=== PATIENT | female | born 1945 | race Caucasian/White ===

== ENCOUNTER 2021-12-12 01:04 | Inpatient (IN) ==
[2021-12-12 01:56] LABS: ABS Basophils 0.1 10^3/ul (0-0.2); ABS Eosinophils 0.1 10^3/ul (0-0.6); ABS Lymphocytes 1.6 10^3/ul (1.0-4.8); ABS Monocytes 0.8 10^3/ul (0-0.8); ABS Neutrophils 5.5 10^3/ul (1.5-7.7); Eosinophil % 1.6 %; Hematocrit 33 % (35-47); Hemoglobin 10.8 g/dL (12.0-16.0); Lymphocyte % 19.9 %; Mean Corpuscular HGB Conc 32 g/dL (31-36); Mean Corpuscular Hemoglobin 26 pg (27-31); Mean Corpuscular Volume 82 fL (80-97); Mean Platelet Volume 9.7 fL (7.4-10.4); Platelet Count 293 10^3/uL (150-450); Red Blood Count 4.08 10^6 /uL (3.70-4.87); Red Cell Distribution Width 16 % (10-15); White Blood Count 8.1 10^3/uL (3.5-10.8)
[2021-12-12 02:17] LABS: Activated Partial Thrombo Time 28.4 seconds (26.0-38.0); INR 0.96 (0.86-1.15)
[2021-12-12 02:38] LABS: Albumin/Globulin Ratio 1.4 (1-3); Calcium 8.9 mg/dL (8.6-10.3); Globulin 2.8 g/dL (2-4); HDL Cholesterol 85.4 mg/dL; Potassium 4.4 mmol/L (3.5-5.0); Total Bilirubin 0.3 mg/dL (0.2-1.0); Total Protein 6.8 g/dL (6.4-8.9)
[2021-12-12] MEDS ORDERED: Famotidine IV 10 MG/ML 2 ml VIAL (20 mg) ONE (03:23)
[2021-12-12 04:04] LABS: High Sensitivity Troponin 1 Hr 18 pg/mL (<15)
[2021-12-12 04:43] LABS: Urine Appearance Cloudy; Urine Bilirubin Negative (Negative); Urine Blood 1+ (Negative); Urine Color Yellow; Urine Glucose Negative (Negative); Urine Ketones Negative (Negative); Urine Nitrite Negative (Negative); Urine Protein Negative (Negative); Urine Specific Gravity 1.014 (1.002-1.030); Urine Urobilinogen Negative (Negative)
[2021-12-12 04:45] LABS: Urine Bacteria 1+ (Absent); Urine Red Blood Cell 1+(3-5/hpf) (Absent); Urine Squamous Epithelial Cell Present (Absent); Urine White Blood Cell Trace(0-5/hpf) (Absent)
[2021-12-12 04:53] LABS: TSH Ultra Thyroid Stim Horm 1.27 mcIU/mL (0.34-5.60)
[2021-12-12] MEDS ORDERED: NS 0.9% 500 ml BAG 500 ML IV ONE (05:11)
[2021-12-12] MEDS: Heparin 5000 UNITS/ML 1 mL VIAL SUBCUT SCH ×3 (06:02→22:47)
[2021-12-12 06:54] LABS: ABS Basophils 0.1 10^3/ul (0-0.2); ABS Eosinophils 0.1 10^3/ul (0-0.6); ABS Lymphocytes 1.2 10^3/ul (1.0-4.8); ABS Monocytes 0.6 10^3/ul (0-0.8); ABS Neutrophils 6.7 10^3/ul (1.5-7.7); Eosinophil % 0.7 %; Hematocrit 29 % (35-47); Hemoglobin 9.4 g/dL (12.0-16.0); Lymphocyte % 14.1 %; Mean Corpuscular HGB Conc 32 g/dL (31-36); Mean Corpuscular Hemoglobin 26 pg (27-31); Mean Corpuscular Volume 82 fL (80-97); Mean Platelet Volume 9.7 fL (7.4-10.4); Platelet Count 247 10^3/uL (150-450); Red Cell Distribution Width 15 % (10-15); White Blood Count 8.8 10^3/uL (3.5-10.8)
[2021-12-12 07:33] LABS: Calcium 8.4 mg/dL (8.6-10.3); Potassium 4.5 mmol/L (3.5-5.0); eGFR CKD-EPI 31.5 (>60)
[2021-12-12] MEDS ORDERED: Acetaminophen IV 1 GM/100ML 100 ML IV ONE (17:09)
[2021-12-13] MEDS: Heparin 5000 UNITS/ML 1 mL VIAL SUBCUT SCH ×3 (05:31→20:57)
[2021-12-14] MEDS: Heparin 5000 UNITS/ML 1 mL VIAL SUBCUT SCH (06:02)
[2021-12-14] MEDS: Cholecalciferol (VIT D3) 1,000 unit TAB PO SCH ×2 (09:23→10:08)
[2021-12-14 13:54] VITALS: BP 117/43
== END 2021-12-14 15:26 | disposition home or self-care (01) | DRG 69 ==
LOC: ED 01:04 → SUATTDRO 03:42 → EDHOLD 03:42 → MEDTELE 07:54
PROVIDERS: ADMIT Hospitalist; ATTEND Internal Medicine

== ENCOUNTER 2022-06-16 19:19 | Inpatient (IN) ==
[2022-06-16 20:01] LABS: Urine Appearance Clear; Urine Bilirubin Negative (Negative); Urine Blood Negative (Negative); Urine Color Straw; Urine Glucose Negative (Negative); Urine Ketones Negative (Negative); Urine Nitrite Negative (Negative); Urine Protein Negative (Negative); Urine Urobilinogen Negative (Negative)
[2022-06-16 20:06] LABS: Hematocrit 15 % (35-47); Mean Corpuscular HGB Conc 27 g/dL (31-36); Mean Corpuscular Hemoglobin 19 pg (27-31); Mean Corpuscular Volume 72 fL (80-97); Platelet Count 264 10^3/uL (150-450); Red Blood Count 2.08 10^6 /uL (3.70-4.87); Red Cell Distribution Width 19 % (10-15); White Blood Count 6.4 10^3/uL (3.5-10.8)
[2022-06-16 20:19] LABS: Hematocrit 15 % (35-47); Mean Corpuscular HGB Conc 27 g/dL (31-36); Mean Corpuscular Hemoglobin 20 pg (27-31); Mean Corpuscular Volume 72 fL (80-97); Red Blood Count 2.05 10^6 /uL (3.70-4.87); Red Cell Distribution Width 19 % (10-15); White Blood Count 5.8 10^3/uL (3.5-10.8)
[2022-06-16] MEDS ORDERED: Furosemide 40 mg/4 ml IV VIAL IV SLOW PU ONE (20:23)
[2022-06-16 20:35] LABS: Microcytosis 2+; Target Cells 1+; Tear Drop Cells 1+
[2022-06-16 20:36] LABS: Platelet Morphology Clumped; Polychromasia 1+
[2022-06-16 20:38] LABS: Stomatocytes 2+
[2022-06-16 20:39] LABS: Hypochromasia 2+
[2022-06-16 20:40] LABS: ABS Basophils 0.2 10^3/ul (0-0.2); ABS Eosinophils 0.1 10^3/ul (0-0.6); ABS Monocytes 0.6 10^3/ul (0-0.8); ABS Neutrophils 4.6 10^3/ul (1.5-7.7); ABS Nucleated RBC 0.2 10^3/ul; Eosinophil % 0.8 %; Lymphocyte % 15.5 %; Nucleated Red Blood Cells % 2.4
[2022-06-16 20:42] LABS: ABS Basophils 0.1 10^3/ul (0-0.2); ABS Lymphocytes 0.9 10^3/ul (1.0-4.8); ABS Monocytes 0.6 10^3/ul (0-0.8); ABS Neutrophils 4.6 10^3/ul (1.5-7.7); ABS Nucleated RBC 0.1 10^3/ul; Eosinophil % 0.6 %; Lymphocyte % 14.4 %; Mean Platelet Volume 7.9 fL (7.4-10.4); Nucleated Red Blood Cells % 2.2; Platelet Count 262 10^3/uL (150-450)
[2022-06-16 20:51] LABS: ALT 13 U/L (7-52); AST 13 U/L (13-39); Albumin 3.8 g/dL (3.2-5.2); Albumin/Globulin Ratio 1.8 (1-3); Alkaline Phosphatase 64 U/L (35-149); Anion Gap 9 mmol/L (2-11); Blood Urea Nitrogen 33 mg/dL (6-24); CO2 Carbon Dioxide 25 mmol/L (22-32); Calcium 8.7 mg/dL (8.6-10.3); Chloride 106 mmol/L (101-111); Globulin 2.1 g/dL (2-4); Glucose 114 mg/dL (70-100); Potassium 4.7 mmol/L (3.5-5.0); Sodium 140 mmol/L (135-145); Total Protein 5.9 g/dL (6.4-8.9); eGFR CKD-EPI 47.7 (>60)
[2022-06-16 22:50] LABS: Corrected Retic Count 1.2 % (0.5-1.5); Hematocrit for Retic CNT 15 % (35-47); Immature Retic Fraction 0.58; RBC Retic Count 2.04 10^6/uL (3.70-4.87)
[2022-06-16 22:52] LABS: LDH 168 U/L (140-271); Total Iron Binding Capacity 547 mcg/dL (250-450); Transferrin 391 mg/dL (203-362)
[2022-06-16 22:53] LABS: % Iron Saturation 4 % (15-55); Iron < 20 ug/dL (50-212); Unsaturated Iron Binding 527 ug/dL
[2022-06-16] MEDS: Pantoprazole VIAL 40 MG VIAL IV SCH (23:06)
[2022-06-16 23:17] LABS: TSH Ultra Thyroid Stim Horm 0.72 mcIU/mL (0.34-5.60)
[2022-06-16 23:18] LABS: Folate 19.29 ng/mL (5.90-24.80)
[2022-06-16 23:19] LABS: Vitamin B12 293 pg/mL (180-914)
[2022-06-17] MEDS ORDERED: Morphine 2 MG/ML SYRINGE IV PRN ×2 (00:37→00:44)
[2022-06-17] MEDS ORDERED: Morphine 4 MG/ML VIAL (1 ml) ONE (00:41)
[2022-06-17] MEDS: HYDROmorphone 0.5 MG/0.5 ML SYRINGE IV SCH ×5 (05:34→21:12)
[2022-06-17] MEDS: Pantoprazole VIAL 40 MG VIAL IV SCH (08:07)
[2022-06-17] MEDS: Cholecalciferol (VIT D3) 1,000 unit TAB PO SCH (08:07)
[2022-06-17 08:34] LABS: ABS Basophils 0.1 10^3/ul (0-0.2); ABS Eosinophils 0.2 10^3/ul (0-0.6); ABS Lymphocytes 1.2 10^3/ul (1.0-4.8); ABS Monocytes 0.7 10^3/ul (0-0.8); ABS Neutrophils 4.5 10^3/ul (1.5-7.7); ABS Nucleated RBC 0.1 10^3/ul; Eosinophil % 2.3 %; Hematocrit 21 % (35-47); Hemoglobin 6.4 g/dL (12.0-16.0); Lymphocyte % 18.1 %; Mean Corpuscular HGB Conc 30 g/dL (31-36); Mean Corpuscular Hemoglobin 24 pg (27-31); Mean Corpuscular Volume 78 fL (80-97); Nucleated Red Blood Cells % 1.1; Platelet Count 212 10^3/uL (150-450); Red Blood Count 2.73 10^6 /uL (3.70-4.87); Red Cell Distribution Width 22 % (10-15); White Blood Count 6.7 10^3/uL (3.5-10.8)
[2022-06-17 08:57] LABS: Calcium 8.5 mg/dL (8.6-10.3); Potassium 4.2 mmol/L (3.5-5.0); eGFR CKD-EPI 48.7 (>60)
[2022-06-17] MEDS ORDERED: Valsartan/HCTZ 80/12.5(NF) TAB PO SCH (09:00)
[2022-06-17 13:15] LABS: Ferritin 5.2 ng/mL (11-307)
[2022-06-17] MEDS: Iron Sucrose 200 MG in NS 0.9% 100 ml BAG 100 ML IVPB SCH (13:45)
[2022-06-17 14:15] LABS: Hematocrit 23 % (35-47); Hemoglobin 7.2 g/dL (12.0-16.0); Mean Corpuscular HGB Conc 31 g/dL (31-36); Mean Corpuscular Hemoglobin 25 pg (27-31); Mean Corpuscular Volume 80 fL (80-97); Platelet Count 201 10^3/uL (150-450); Red Blood Count 2.85 10^6 /uL (3.70-4.87); Red Cell Distribution Width 23 % (10-15); White Blood Count 6.6 10^3/uL (3.5-10.8)
[2022-06-18] MEDS: HYDROmorphone 0.5 MG/0.5 ML SYRINGE IV SCH ×5 (01:34→19:20)
[2022-06-18 06:57] LABS: ABS Basophils 0.1 10^3/ul (0-0.2); ABS Eosinophils 0.2 10^3/ul (0-0.6); ABS Monocytes 0.7 10^3/ul (0-0.8); ABS Neutrophils 4.4 10^3/ul (1.5-7.7); ABS Nucleated RBC 0.1 10^3/ul; Eosinophil % 3.6 %; Hematocrit 24 % (35-47); Hemoglobin 7.4 g/dL (12.0-16.0); Lymphocyte % 14.9 %; Mean Corpuscular HGB Conc 31 g/dL (31-36); Mean Corpuscular Hemoglobin 24 pg (27-31); Mean Corpuscular Volume 79 fL (80-97); Mean Platelet Volume 8.2 fL (7.4-10.4); Nucleated Red Blood Cells % 1.4; Platelet Count 193 10^3/uL (150-450); Red Blood Count 3.02 10^6 /uL (3.70-4.87); Red Cell Distribution Width 23 % (10-15); White Blood Count 6.4 10^3/uL (3.5-10.8)
[2022-06-18 07:10] LABS: Calcium 8.3 mg/dL (8.6-10.3)
[2022-06-18] MEDS: Cholecalciferol (VIT D3) 1,000 unit TAB PO SCH (09:10)
[2022-06-18] MEDS: Pantoprazole VIAL 40 MG VIAL IV SCH (09:11)
[2022-06-18] MEDS ORDERED: Midazolam 5 mg/5 ml VIAL 1 mg/ml 5 ml VIAL (5 mg) ONE (12:20)
[2022-06-18] MEDS ORDERED: fentaNYL 100 mcg/2 ml 50 MCG/ML VIAL ONE (12:20)
[2022-06-19 06:14] LABS: ABS Basophils 0.1 10^3/ul (0-0.2); ABS Eosinophils 0.3 10^3/ul (0-0.6); ABS Lymphocytes 1.3 10^3/ul (1.0-4.8); ABS Monocytes 0.9 10^3/ul (0-0.8); ABS Neutrophils 5.2 10^3/ul (1.5-7.7); Eosinophil % 3.6 %; Hematocrit 24 % (35-47); Hemoglobin 7.3 g/dL (12.0-16.0); Lymphocyte % 16.6 %; Mean Corpuscular HGB Conc 31 g/dL (31-36); Mean Corpuscular Hemoglobin 25 pg (27-31); Mean Corpuscular Volume 81 fL (80-97); Mean Platelet Volume 8.4 fL (7.4-10.4); Nucleated Red Blood Cells % 0.3; Platelet Count 185 10^3/uL (150-450); Red Blood Count 2.92 10^6 /uL (3.70-4.87); Red Cell Distribution Width 24 % (10-15); White Blood Count 7.7 10^3/uL (3.5-10.8)
[2022-06-19 06:35] LABS: Calcium 8.4 mg/dL (8.6-10.3); Potassium 3.9 mmol/L (3.5-5.0); eGFR CKD-EPI 52.4 (>60)
[2022-06-19 08:45] LABS: INR 1.11 (0.88-1.18)
[2022-06-19] MEDS: Cholecalciferol (VIT D3) 1,000 unit TAB PO SCH (10:08)
[2022-06-19] MEDS: Iron Sucrose 200 MG in NS 0.9% 100 ml BAG 100 ML IVPB SCH (12:47)
[2022-06-19] MEDS ORDERED: PEG 3000 GI LAVAGE 1 GALLON PO ONE (13:00)
[2022-06-19] MEDS ORDERED: Acetaminophen IV 1 GM/100ML 1,000 MG/100 ML BAG IV PRN (15:41)
[2022-06-19] MEDS: Acetaminophen IV 1 GM/100ML 1,000 MG/100 ML BAG IV PRN (22:04)
[2022-06-20 05:51] LABS: ABS Basophils 0.1 10^3/ul (0-0.2); ABS Eosinophils 0.2 10^3/ul (0-0.6); ABS Lymphocytes 1.2 10^3/ul (1.0-4.8); ABS Monocytes 0.8 10^3/ul (0-0.8); ABS Neutrophils 3.9 10^3/ul (1.5-7.7); Hematocrit 26 % (35-47); Lymphocyte % 18.8 %; Mean Corpuscular HGB Conc 31 g/dL (31-36); Mean Corpuscular Hemoglobin 26 pg (27-31); Mean Corpuscular Volume 83 fL (80-97); Mean Platelet Volume 8.1 fL (7.4-10.4); Nucleated Red Blood Cells % 0.4; Platelet Count 200 10^3/uL (150-450); Red Cell Distribution Width 24 % (10-15); White Blood Count 6.2 10^3/uL (3.5-10.8)
[2022-06-20 06:23] LABS: Calcium 8.5 mg/dL (8.6-10.3); Potassium 3.8 mmol/L (3.5-5.0)
[2022-06-20 06:29] LABS: eGFR CKD-EPI 59.5 (>60)
[2022-06-20] MEDS: Acetaminophen IV 1 GM/100ML 1,000 MG/100 ML BAG IV PRN ×2 (08:09→20:30)
[2022-06-20] MEDS: Cholecalciferol (VIT D3) 1,000 unit TAB PO SCH (08:09)
[2022-06-20] MEDS ORDERED: Midazolam 5 mg/5 ml VIAL 1 mg/ml 5 ml VIAL (5 mg) ONE (15:00)
[2022-06-20] MEDS ORDERED: fentaNYL 100 mcg/2 ml 50 MCG/ML VIAL ONE (15:00)
[2022-06-21 00:09] LABS: Albumin 2.9 g/dL (3.4-4.7); Gamma Globulin 0.6 g/dL (0.6-1.6); Total Protein(PEP) 5.7 g/dL (6.3 - 7.9)
[2022-06-21] MEDS ORDERED: Benzocaine/Menthol LOZ PO PRN (01:53)
[2022-06-21 05:33] LABS: Hematocrit 25 % (35-47); Hemoglobin 7.6 g/dL (12.0-16.0); Mean Corpuscular HGB Conc 31 g/dL (31-36); Mean Corpuscular Hemoglobin 25 pg (27-31); Mean Corpuscular Volume 83 fL (80-97); Mean Platelet Volume 8.2 fL (7.4-10.4); Platelet Count 193 10^3/uL (150-450); Red Blood Count 2.98 10^6 /uL (3.70-4.87); Red Cell Distribution Width 25 % (10-15); White Blood Count 6.1 10^3/uL (3.5-10.8)
[2022-06-21 06:10] LABS: ABS Basophils 0.1 10^3/ul (0-0.2); ABS Eosinophils 0.3 10^3/ul (0-0.6); ABS Lymphocytes 1.2 10^3/ul (1.0-4.8); ABS Monocytes 0.7 10^3/ul (0-0.8); ABS Neutrophils 3.8 10^3/ul (1.5-7.7); Nucleated Red Blood Cells % 0.2
[2022-06-21 06:17] LABS: Calcium 8.3 mg/dL (8.6-10.3); Potassium 3.8 mmol/L (3.5-5.0)
[2022-06-21 06:23] LABS: eGFR CKD-EPI 60.9 (>60)
[2022-06-21] MEDS: Cholecalciferol (VIT D3) 1,000 unit TAB PO SCH (08:16)
[2022-06-21] MEDS: Iron Sucrose 200 MG in NS 0.9% 100 ml BAG 100 ML IVPB SCH (12:17)
[2022-06-21 12:27] VITALS: BP 149/55
== END 2022-06-21 15:15 | disposition home or self-care (01) | DRG 812 ==
LOC: ED 19:19 → SUATTDRO 22:02 → EDHOLD 22:02 → MEDTELE 06-17 02:14
PROVIDERS: ADMIT Student in an Organized Health Care Education/Training Program; ATTEND Internal Medicine

== ENCOUNTER 2024-01-15 21:33 | Inpatient (IN) ==
[2024-01-15 22:02] LABS: ABS Basophils 0.1 10^3/uL (0.0-0.1); ABS Eosinophils 0.1 10^3/uL (0.0-0.5); ABS Lymphocytes 1.1 10^3/uL (1.0-4.8); ABS Monocytes 0.7 10^3/uL (0.0-0.9); ABS Neutrophils 5.1 10^3/uL (1.5-7.6); Eosinophil % 1.1 %; Hematocrit 26.7 % (35-45); Hemoglobin 8.5 g/dL (11.5-14.3); Lymphocyte % 15.6 %; Mean Corpuscular Hemoglobin 27.3 pg (27-33); Mean Corpuscular Hgb Conc 31.8 g/dL (31-36); Mean Corpuscular Volume 85.9 fL (80-97); Mean Platelet Volume 9.1 fL (7.5-11.2); Nucleated Red Blood Cells % 0.1 %/100WBC (0.0-0.8); Platelet Count 260 10^3/uL (150-450); Red Cell Distribution Width 16.2 % (12-17); White Blood Count 7.1 10^3/uL (3.8-11.8)
[2024-01-15 22:09] LABS: INR 1.05 (0.83-1.13)
[2024-01-15 23:00] LABS: Albumin 4.3 g/dL (3.2-5.2); Albumin/Globulin Ratio 1.7 (1-3); Calcium 9.5 mg/dL (8.6-10.3); Creatinine, Serum 1.27 mg/dL (0.51-0.95); Globulin 2.5 g/dL (2-4); Magnesium 2.1 mg/dL (1.9-2.7); Potassium 4.6 mmol/L (3.5-5.0); Total Bilirubin 0.4 mg/dL (0.2-1.0); Total Protein 6.8 g/dL (6.4-8.9); eGFR CKD-EPI 43.6 (>60)
[2024-01-15 23:24] LABS: High Sensitivity Troponin 1 Hr 9 pg/mL (<15)
[2024-01-16] MEDS: Morphine 2 MG/ML SYRINGE IV ONE (00:40)
[2024-01-16] MEDS: Morphine 2 MG/ML SYRINGE IV PRN (05:36)
[2024-01-16 06:31] LABS: ABS Basophils 0.2 10^3/uL (0.0-0.1); ABS Eosinophils 0.1 10^3/uL (0.0-0.5); ABS Lymphocytes 1.4 10^3/uL (1.0-4.8); ABS Monocytes 0.8 10^3/uL (0.0-0.9); ABS Neutrophils 3.9 10^3/uL (1.5-7.6); ABS Nucleated RBC 0.01 10^3/ul; Hematocrit 22.9 % (35-45); Hemoglobin 7.5 g/dL (11.5-14.3); Lymphocyte % 21.6 %; Mean Corpuscular Hemoglobin 28.1 pg (27-33); Mean Corpuscular Hgb Conc 32.7 g/dL (31-36); Mean Platelet Volume 9.2 fL (7.5-11.2); Nucleated Red Blood Cells % 0.1 %/100WBC (0.0-0.8); Platelet Count 228 10^3/uL (150-450); Red Blood Count 2.67 10^6/uL (3.63-4.92); Red Cell Distribution Width 15.7 % (12-17); White Blood Count 6.3 10^3/uL (3.8-11.8)
[2024-01-16 06:51] LABS: Anion Gap 8 mmol/L (2-16); Blood Urea Nitrogen 34 mg/dL (6-24); CO2 Carbon Dioxide 22 mmol/L (22-32); Calcium 7.7 mg/dL (8.6-10.3); Chloride 108 mmol/L (101-111); Creatinine, Serum 1.01 mg/dL (0.51-0.95); Glucose 98 mg/dL (70-100); Magnesium 1.8 mg/dL (1.9-2.7); Potassium 3.8 mmol/L (3.5-5.0); Sodium 138 mmol/L (135-145); eGFR CKD-EPI 57.3 (>60)
[2024-01-16] MEDS ORDERED: fentaNYL 100 mcg/2 ml 50 MCG/ML VIAL ONE (08:03)
[2024-01-16] MEDS ORDERED: Flumazenil 0.5 mg/5 ml 0.1 MG/ML 5 ml VIAL ONE (08:03)
[2024-01-16] MEDS ORDERED: Naloxone 0.4 mg VIAL 0.4 mg/ml 1 ml VIAL ONE (08:03)
[2024-01-16] MEDS ORDERED: Midazolam 5 mg/5 ml VIAL 1 mg/ml 5 ml VIAL (5 mg) ONE (08:04)
[2024-01-16] MEDS ORDERED: Sulfur Hexaflouride MICROSPHR 25 MG VIAL ONE ×2 (08:40→12:28)
[2024-01-16] MEDS ORDERED: Valsartan/HCTZ 80/12.5(NF) TAB PO SCH (09:00)
[2024-01-16 10:26] LABS: % Iron Saturation 4 % (15-55); .Transferrin 318 mg/dL (203-362); Iron < 20 ug/dL (50-212); Total Iron Binding Capacity 445 mcg/dL (250-450); Unsaturated Iron Binding 425 ug/dL
[2024-01-16 10:30] LABS: TSH Ultra Thyroid Stim Horm 2.67 mcIU/mL (0.34-5.60)
[2024-01-16 10:48] LABS: Ferritin 6.5 ng/mL (11-307)
[2024-01-16 10:52] LABS: Vitamin B12 287 pg/mL (180-914)
[2024-01-16] MEDS: Iodixanol (CONTRAST) 320 MG/ML 100 ML SDV IV ONE (12:06)
[2024-01-16] MEDS: Furosemide 40 mg/4 ml IV VIAL IV SLOW PU ONE (12:13)
[2024-01-16] MEDS: Magnesium Sulfate 2 gm BAG 2 GM/50 ML BAG IVPB ONE (12:13)
[2024-01-16] MEDS: Sulfur Hexaflouride MICROSPHR 25 MG VIAL IV ONE (13:11)
[2024-01-16] MEDS: Magnesium Sulfate IV 1GM/100ML 1 GM/100 ML BAG IV ONE (14:30)
[2024-01-16] MEDS: Diltiazem Infusion @ 10 MG/HR - (MEDTELE ONLY, no titration) IV SCH (17:15)
[2024-01-17] MEDS ORDERED: Metoprolol Tartrate 5 mg VIAL 5 ml VIAL (1 mg/ml) IV PRN (06:21)
[2024-01-17 06:55] LABS: ABS Basophils 0.1 10^3/uL (0.0-0.1); ABS Eosinophils 0.2 10^3/uL (0.0-0.5); ABS Lymphocytes 1.1 10^3/uL (1.0-4.8); ABS Monocytes 0.5 10^3/uL (0.0-0.9); ABS Neutrophils 3.7 10^3/uL (1.5-7.6); Eosinophil % 4.3 %; Hematocrit 22.5 % (35-45); Hemoglobin 7.3 g/dL (11.5-14.3); Lymphocyte % 18.9 %; Mean Corpuscular Hemoglobin 27.8 pg (27-33); Mean Corpuscular Hgb Conc 32.4 g/dL (31-36); Mean Corpuscular Volume 85.8 fL (80-97); Mean Platelet Volume 9.3 fL (7.5-11.2); Platelet Count 210 10^3/uL (150-450); Red Blood Count 2.62 10^6/uL (3.63-4.92); Red Cell Distribution Width 15.9 % (12-17); White Blood Count 5.6 10^3/uL (3.8-11.8)
[2024-01-17 07:33] LABS: Calcium 8.7 mg/dL (8.6-10.3); Creatinine, Serum 1.31 mg/dL (0.51-0.95); Magnesium 2.2 mg/dL (1.9-2.7); Potassium 3.9 mmol/L (3.5-5.0)
[2024-01-17] MEDS: Pantoprazole VIAL 40 MG VIAL IV SCH (11:49)
[2024-01-17] MEDS: Furosemide 40 mg/4 ml IV VIAL IV SLOW PU ONE (11:49)
[2024-01-17] MEDS: Polyethylene Glycol 3350 17 GM PACKET PO SCH (11:55)
[2024-01-17] MEDS: Ferric Gluconate IV 250 MG in NS 0.9% 250 ml 200 ML IVPB SCH (11:55)
[2024-01-17] MEDS: KCL 10 MEQ/50 ML IVPREMIX 10 MEQ/50 ML BAG IV SCH (12:01)
[2024-01-17] MEDS: Senna TAB 8.6 mg TAB PO SCH (20:24)
[2024-01-18 06:05] LABS: Calcium 8.3 mg/dL (8.6-10.3); Creatinine, Serum 1.35 mg/dL (0.51-0.95); Potassium 4.2 mmol/L (3.5-5.0); eGFR CKD-EPI 40.5 (>60)
[2024-01-18 06:10] LABS: ABS Basophils 0.1 10^3/uL (0.0-0.1); ABS Eosinophils 0.2 10^3/uL (0.0-0.5); ABS Lymphocytes 1.1 10^3/uL (1.0-4.8); ABS Monocytes 0.6 10^3/uL (0.0-0.9); ABS Neutrophils 3.6 10^3/uL (1.5-7.6); ABS Nucleated RBC 0.01 10^3/ul; Eosinophil % 3.5 %; Hematocrit 24.1 % (35-45); Hemoglobin 7.4 g/dL (11.5-14.3); Lymphocyte % 19.6 %; Mean Corpuscular Hemoglobin 26.9 pg (27-33); Mean Corpuscular Hgb Conc 30.8 g/dL (31-36); Mean Corpuscular Volume 87.3 fL (80-97); Mean Platelet Volume 9.4 fL (7.5-11.2); Nucleated Red Blood Cells % 0.2 %/100WBC (0.0-0.8); Platelet Count 185 10^3/uL (150-450); Red Blood Count 2.76 10^6/uL (3.63-4.92); White Blood Count 5.6 10^3/uL (3.8-11.8)
[2024-01-18] MEDS: Furosemide 40 mg/4 ml IV VIAL IV ONE (11:53)
[2024-01-18] MEDS: Empagliflozin 25 MG TAB PO SCH (11:53)
[2024-01-19 06:06] LABS: Hematocrit 23.1 % (35-45); Hemoglobin 7.5 g/dL (11.5-14.3); Mean Corpuscular Hemoglobin 27.6 pg (27-33); Mean Corpuscular Hgb Conc 32.2 g/dL (31-36); Mean Corpuscular Volume 85.6 fL (80-97); Mean Platelet Volume 9.4 fL (7.5-11.2); Platelet Count 205 10^3/uL (150-450); Red Cell Distribution Width 15.4 % (12-17); White Blood Count 6.1 10^3/uL (3.8-11.8)
[2024-01-19 06:21] LABS: Calcium 8.4 mg/dL (8.6-10.3); Creatinine, Serum 1.33 mg/dL (0.51-0.95); eGFR CKD-EPI 41.2 (>60)
[2024-01-19] MEDS: Ondansetron 4 mg VIAL 2 MG/ML 2 ml VIAL IV PRN (23:03)
[2024-01-20 06:05] LABS: Hematocrit 24.3 % (35-45); Hemoglobin 7.5 g/dL (11.5-14.3); Mean Corpuscular Hemoglobin 27.1 pg (27-33); Mean Corpuscular Volume 87.2 fL (80-97); Mean Platelet Volume 9.1 fL (7.5-11.2); Platelet Count 196 10^3/uL (150-450); Red Blood Count 2.78 10^6/uL (3.63-4.92); Red Cell Distribution Width 15.6 % (12-17); White Blood Count 5.7 10^3/uL (3.8-11.8)
[2024-01-20 06:58] LABS: Calcium 8.6 mg/dL (8.6-10.3); Creatinine, Serum 1.21 mg/dL (0.51-0.95); Potassium 4.2 mmol/L (3.5-5.0); eGFR CKD-EPI 46.2 (>60)
[2024-01-21 07:36] LABS: Hematocrit 25.9 % (35-45); Mean Corpuscular Hemoglobin 27.6 pg (27-33); Mean Corpuscular Volume 89.2 fL (80-97); Mean Platelet Volume 9.2 fL (7.5-11.2); Platelet Count 188 10^3/uL (150-450); Red Blood Count 2.91 10^6/uL (3.63-4.92); Red Cell Distribution Width 15.8 % (12-17)
[2024-01-21 08:10] LABS: Calcium 8.6 mg/dL (8.6-10.3); Creatinine, Serum 1.4 mg/dL (0.51-0.95); Magnesium 2.2 mg/dL (1.9-2.7); Potassium 4.5 mmol/L (3.5-5.0); eGFR CKD-EPI 38.7 (>60)
[2024-01-22 06:20] LABS: Hematocrit 24.6 % (35-45); Hemoglobin 7.8 g/dL (11.5-14.3); Mean Corpuscular Hemoglobin 28.1 pg (27-33); Mean Corpuscular Hgb Conc 31.8 g/dL (31-36); Mean Corpuscular Volume 88.2 fL (80-97); Mean Platelet Volume 9.6 fL (7.5-11.2); Platelet Count 203 10^3/uL (150-450); Red Blood Count 2.79 10^6/uL (3.63-4.92); Red Cell Distribution Width 15.8 % (12-17); White Blood Count 5.8 10^3/uL (3.8-11.8)
[2024-01-22 08:00] LABS: Anion Gap 12 mmol/L (2-16); Blood Urea Nitrogen 31 mg/dL (6-24); CO2 Carbon Dioxide 23 mmol/L (22-32); Calcium 8.2 mg/dL (8.6-10.3); Chloride 103 mmol/L (101-111); Glucose 82 mg/dL (70-100); Magnesium 2.2 mg/dL (1.9-2.7); Sodium 138 mmol/L (135-145); eGFR CKD-EPI 42.4 (>60)
[2024-01-22 09:47] VITALS: BP 108/52
== END 2024-01-22 12:15 | disposition home or self-care (01) | DRG 291 ==
LOC: ED 21:33 → EDHOLD 21:33 → SUATTDRO 01-16 00:55 → MEDTELE 01-16 12:23 → SUATTDRO 01-18 15:30
PROVIDERS: ADMIT Student in an Organized Health Care Education/Training Program; ATTEND Student in an Organized Health Care Education/Training Program